=== PATIENT | male | born 1950 | race Caucasian/White ===

== ENCOUNTER 2023-03-10 21:06 | Emergency (ER) | payer OTHER, SELFPAY ==
[2023-03-10] VITALS (21 sets, daily range): BP systolic 99–150; BP diastolic 60–102; PULSE 68–242; RESP 14–33; TEMP 36.8; O2SAT 53–98; BMI 30.7
--- NOTE | 2023-03-10 21:24 | XR_ITS ---
The [address] [address] Patient Name: SHELLEY MULLINS MRN: [id number] date: 1950 Sex: M Assigned Patient Location: ED.MAIN Current Patient Location: ER Accession/Order Number: [id number] Exam Date: 03/10/2023 21:55 Report Date: 03/10/2023 22:32 At the request of: HARRIS GERARDO Procedure: XR chest 1V EXAM: XR chest 1V HISTORY: chest pain COMPARISON: None. TECHNIQUE: AP portable study FINDINGS: There is relative elevation of the right hemidiaphragm. There are increased interstitial markings bilaterally. Peripheral lung galdamez are clear. Cardiomegaly is noted. Bony structures are unremarkable. XR/XR chest 1V IMPRESSION: Cardiomegaly with increased interstitial markings in a pattern suggesting early CHF. Electronically authenticated by: Carina TRAMMELL Date: 03/10/2023 22:32
--- NOTE | 2023-03-10 21:24 | ECG_ITS ---
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
[2023-03-10] MEDS: MORPHINE SULFATE 4 MG/ML VIAL IM (21:25)
[2023-03-10] MEDS: NITROGLYCERIN 0.4 MG TAB.SUBL (21:25)
[2023-03-10] MEDS: DILTIAZEM HCL 25 MG/5 ML VIAL 10 MG IV (21:25)
[2023-03-10 21:35] LABS: Basophils Percent Auto 0.3 % (0.2-2.0); Eosinophils Absolute Auto 0.1 10^3/uL (0.0-0.7); Eosinophils Percent Auto 1.4 % (0.9-7.0); Hematocrit 43.2 % (42.0-54.0); Hemoglobin 14.4 g/dL (14.0-18.0); Immature Granulocytes Abs Auto 0.04 10^3/uL (0.00-0.03); Immature Granulocytes Pct Auto 0.5 % (0.0-0.5); Lymphocytes Absolute Auto 2.4 10^3/uL (1.2-3.8); Lymphocytes Percent Auto 27.1 % (20.5-60.0); Mean Corpuscular HGB Conc 33.3 g/dL (29.9-35.2); Mean Corpuscular Hemoglobin 31.6 pg (25.9-34.0); Mean Corpuscular Volume 94.7 fL (80.0-94.0); Mean Platelet Volume 10.4 fL (9.5-13.5); Monocytes Absolute Auto 0.9 10^3/uL (0.3-0.8); Monocytes Percent Auto 10.6 % (1.7-12.0); Neutrophils Absolute Auto 5.2 10^3/uL (1.4-6.5); Neutrophils Percent Auto 60.1 % (43.0-75.0); Platelet Count 338 10^3/uL (150-450); Red Blood Count 4.56 10^6/uL (4.70-6.10); Red Cell Distribution Width 12.6 % (11.0-15.0); White Blood Count 8.7 10^3/uL (4.0-11.0)
--- NOTE | 2023-03-10 21:35 | ED.CHESTPAI1 ---
HPI - Chest Pain General Chief Complaint: Chest Pain Stated Complaint: CHEST PAIN Time Seen by Provider: 03/10/23 21:18 Source: patient Mode of arrival: Wheelchair Limitations: no limitations History of Present Illness HPI narrative: patient past history of NIDDM and LBBB presents complaining of chest pain. States started about one hour ago. He was sitting and watching TV when it started. Describes pressure pain. No associated dyspnea or nausea. Denies similar pain in the past MD complaint: Reports chest pain and chest heaviness Onset: Reports during rest Pain location: Reports substernal Risk Factors Coronary artery disease risk factors: diabetes Related Data Home Medications Medication Instructions Recorded Confirmed aspirin 81 mg tablet,delayed 81 mg PO DAILY 03/11/23 03/11/23 release cinnamon bark 500 mg capsule 500 mg PO BID 03/11/23 03/11/23 (Cinnamon) gabapentin 300 mg capsule 300 mg PO .q6 03/11/23 03/11/23 glipizide 10 mg tablet 5 mg PO BID 03/11/23 03/11/23 lisinopril 5 mg tablet 5 mg PO DAILY 03/11/23 03/11/23 metformin 1,000 mg tablet 1,000 mg PO BID 03/11/23 03/11/23 omega 5-cmn-ash-fish oil 100 cap PO 03/11/23 mg-160 mg-1,000 mg capsule (Fish Oil) simvastatin 10 mg tablet 10 mg PO DAILY 03/11/23 03/11/23 tramadol 100 mg tablet 50 mg PO Q6H 03/11/23 03/11/23 Allergies Allergy/AdvReac Type Severity Reaction Status Date / Time Penicillins Allergy Unknown Verified 03/10/23 21:31 Review of Systems ROS Status of ROS 10 or more systems reviewed and unremarkable except as noted in history and below [facility] Medical History (Updated 03/11/23 @ 03:07 by Hill Lin MD) Surgical History (Updated 03/11/23 @ 00:37 by Murphy Woodward) Exam Constitutional Vital Signs, click to edit/add: Last Vital Signs Temp 98.3 F 03/10/23 21:18 Pulse 71 03/11/23 03:43 Resp 20 03/11/23 03:43 BP 99/61 03/11/23 03:43 Pulse Ox 94 L 03/11/23 03:43 O2 Del Method Room Air 03/10/23 22:05 O2 Flow Rate 2 03/11/23 03:43 Common normals: no apparent distress (mod. distress. Sadler sign) and oriented x3 HENMT Common normals: normocephalic and head/scalp atraumatic Eye Common normals: EOMs intact bilaterally and conjunctivae normal Chest Common normals: inspection of chest normal and palpation of chest normal Cardio Rate: tachycardic GI Common normals: Normal to inspection, nondistended, normoactive bowel sounds present, soft to palpation and non-tender Neuro Common normals: oriented x3, CN's II-XII intact bilaterally, moves all extremities, no focal motor deficits and no sensory deficits noted Psych Appearance: grossly normal Course Vital Signs Vital signs: Vital Signs Pulse Rate 230 H 03/10/23 21:15 Respiratory Rate 33 H 03/10/23 21:15 Pulse Oximetry 88 L 03/10/23 21:15 Temperature 98.3 F 03/10/23 21:18 Pulse Rate 71 03/11/23 03:43 Respiratory Rate 20 03/11/23 03:43 Blood Pressure 99/61 03/11/23 03:43 Pulse Oximetry 94 L 03/11/23 03:43 Oxygen Delivery Method Room Air 03/10/23 22:05 Oxygen Delivery Flow Rate 2 03/11/23 03:43 MDM - Chest Pain MDM Narrative Medical decision making narrative: patient presents from home with mod-severe chest pain. Patient demonstrating Sadler sign. monitor with new onset A. flutter with RVR. EKG also demonstrated LBBB which is old. serial troponin neg. CTA chest with mild vascular congestion but neg. PE or aneurysm. Pain improved after Dilaudid. lHe was treated with diltiazem bolus and drip and also with metoprolol. was given dose of NTG SL for chest pain but his pressure bottom out in the 70s . improved with IV fluids. His diltiazem was decreased from 10/hr to 5/hr as he was becoming hypotensive and A. flutter block changed from 3:1 to 4:1. Patient responded nicely to the adjustment in diltiazem and extra fluids. discussed with hospitalist and patient accepted for transfer Lab Data Labs: Lab Results 03/10/23 03/11/23 Range/Units 21:20 00:34 WBC 8.7 (4.0-11.0) 10^3/uL RBC 4.56 L (4.70-6.10) 10^6/uL Hgb 14.4 (14.0-18.0) g/dL Hct 43.2 (42.0-54.0) % MCV 94.7 H (80.0-94.0) fL MCH 31.6 (25.9-34.0) pg MCHC 33.3 (29.9-35.2) g/dL RDW 12.6 (11.0-15.0) % Plt Count 338 (150-450) 10^3/uL MPV 10.4 (9.5-13.5) fL Neut % (Auto) 60.1 (43.0-75.0) % Lymph % (Auto) 27.1 (20.5-60.0) % Woodward % (Auto) 10.6 (1.7-12.0) % Eos % (Auto) 1.4 (0.9-7.0) % Baso % (Auto) 0.3 (0.2-2.0) % Neut # (Auto) 5.2 (1.4-6.5) 10^3/uL Lymph # (Auto) 2.4 (1.2-3.8) 10^3/uL Woodward # (Auto) 0.9 H (0.3-0.8) 10^3/uL Eos # (Auto) 0.1 (0.0-0.7) 10^3/uL Baso # (Auto) 0.0 (0.0-0.1) 10^3/uL Abs Immat Gran (auto) 0.04 H (0.00-0.03) 10^3/uL Imm/Tot Granulo (auto) 0.5 (0.0-0.5) % PT 10.2 (9.0-11.6) sec INR 0.96 APTT 28.5 (22.3-36.2) sec Sodium 138 (136-145) mmol/L Potassium 4.9 (3.5-5.1) mmol/L Chloride 102 (98-107) mmol/L Carbon Dioxide 28.2 (21.0-32.0) mmol/L Anion Gap 12.7 BUN 25.0 H (7.0-18.0) mg/dL Creatinine 1.50 H (0.70-1.30) mg/dL Est GFR ( Amer) 56 L (>=60) Est GFR (Non-Af Amer) 46 L (>=60) BUN/Creatinine Ratio 16.7 Glucose 170 H (74-106) mg/dL Calcium 9.4 (8.5-10.1) mg/dL Troponin I High Sens 15.4 17.5 (4.0-76.1) pg/mL Discharge Plan Discharge Chief Complaint: Chest Pain Clinical Impression: Atrial flutter with rapid ventricular response, Chest pain Patient Disposition: er Acute [facility] Discharge Location: [facility] Condition: Fair Mode of Transportation: EMS Discharge Date/Time: 03/11/23 04:22
[2023-03-10 21:51] LABS: Anion Gap 12.7; BUN Creatinine Ratio 16.7; Calcium 9.4 mg/dL (8.5-10.1); Carbon Dioxide 28.2 mmol/L (21.0-32.0); Chloride 102 mmol/L (98-107); Estimated GFR (African America 56 (>=60); Estimated GFR (Non-African Ame 46 (>=60); Glucose 170 mg/dL (74-106); Potassium 4.9 mmol/L (3.5-5.1); Sodium 138 mmol/L (136-145); Troponin I High Sensitivity 15.4 pg/mL (4.0-76.1)
[2023-03-10] MEDS: dilTIAZem HCL 125 MG in 0.9 % SODIUM CHLORIDE 100 ML 10 MG IV (21:51)
[2023-03-10] MEDS: MORPHINE SULFATE 4 MG/ML VIAL (21:53)
--- NOTE | 2023-03-10 22:10 | PC.NURSE ---
placed on 2L NC, patient 97%
--- NOTE | 2023-03-10 22:13 | PC.NURSE ---
patient brought in by after having chest pain for one hour, Two lines were established and labs drawn, vitals and ekg obtained, Nitro, morphine, and ditalizem were given. Patients bp Dropped to 90/60 manual. Physician notified HORTENSIA iglesias. Patient moved to room 5 and given a 2nd dose of morphine for the chest pain. Patient placed on zoll patches for precaution.
[2023-03-10 22:20] LABS: INR 0.96; Partial Thromboplastin Time 28.5 sec (22.3-36.2); Prothrombin Time 10.2 sec (9.0-11.6)
--- NOTE | 2023-03-10 22:27 | CT_ITS ---
[place] [id number] Patient Name: SHELLEY MULLINS MRN: [id number] date: 1950 Sex: M Assigned Patient Location: ER Current Patient Location: ER Accession/Order Number: [id number] Exam Date: 03/10/2023 23:25 Report Date: 03/11/2023 00:16 At the request of: HARRIS GERARDO Procedure: CT angio chest EXAM: CT angio chest HISTORY: chest pain COMPARISON: Chest radiograph 03/10/2023 TECHNIQUE: CTA of the chest with intravenous contrast. Sagittal and coronal reconstructions with 3-D image processing performed. FINDINGS: TUBES AND IMPLANTS: None. CHEST: CHEST WALL AND LOWER NECK: Unremarkable. MEDIASTINUM AND ISRA[place]: No hematoma. No enlarged lymph nodes by CT size criteria. Calcified mediastinal and hilar lymph nodes are present. AORTA: No aneurysm or dissection HEART: Mild to moderate cardiomegaly PULMONARY ARTERIES: No embolism CORONARY ARTERIES: Moderate to severe coronary artery calcifications. 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 PLEURA: Unremarkable. BONES: No suspicious lesions. Multilevel degenerative changes of the spine. UPPER ABDOMEN: No acute findings CT/CT angio chest IMPRESSION: 1. No evidence of acute aortic dissection, pulmonary embolism or other acute intrathoracic process. 2. Mild to moderate cardiomegaly. Moderate to severe coronary artery calcification. 3. 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 4. Sequelae of remote granulomatous disease. Electronically authenticated by: LUPILLO CARTAGENA Date: 03/11/2023 00:16
[2023-03-10] MEDS: HYDROMORPHONE HCL 0.5 MG/0.5 ML SYRINGE IV (22:45)
[2023-03-11] VITALS (19 sets, daily range): BP systolic 81–116; BP diastolic 56–74; PULSE 60–118; RESP 17–26; O2SAT 94–98
[2023-03-11] MEDS: HYDROMORPHONE HCL 0.5 MG/0.5 ML SYRINGE IV (00:42)
[2023-03-11] MEDS: METOPROLOL TARTRATE 5 MG/5 ML VIAL IVP (00:50)
[2023-03-11 00:56] LABS: Troponin I High Sensitivity 17.5 pg/mL (4.0-76.1)
[2023-03-11] MEDS: 0.9 % SODIUM CHLORIDE 1,000 ML 999 ML (02:25)
--- NOTE | 2023-03-11 02:30 | PC.NURSE ---
patient denies any SOB. physician notified of resp and bp
== END 2023-03-11 04:22 | disposition short-term general hospital (02) ==
PROVIDERS: Emergency Provider Internal Medicine
DX: I48.92 Unspecified atrial flutter (principal); R07.9 Chest pain, unspecified; E11.9 Type 2 diabetes mellitus without complications; I44.7 Left bundle-branch block, unspecified; Z79.82 Long term (current) use of aspirin; Z79.84 Long term (current) use of oral hypoglycemic drugs; Z79.899 Other long term (current) drug therapy
CPT/HCPCS: 36415; 71045; 71275; 80048; 84484; 85025; 85610; 85730; 93005; 96365; 96366; 96375; 96376; 99285; J1170; Q9967